=== PATIENT | female | born 1930 | race Caucasian/White ===

== ENCOUNTER 2018-05-19 21:20 | Observation (INO) | payer OTHER, BC ==
--- NOTE | 2018-05-19 21:26 | PDOC ---
Rapid Medical Evaluation Time Seen by Provider: 05/19/18 21:21 Medical Evaluation: Allergies Allergy/AdvReac Type Severity Reaction Status Date / Time cephalexin monohydrate Allergy Verified 09/08/16 16:24 [From Keflex] morphine Allergy Verified 09/08/16 16:24 Sulfa (Sulfonamide Allergy Verified 09/08/16 16:24 Antibiotics) 05/19/18 21:21 I have performed a brief in-person evaluation of this patient. The patient presents with a chief complaint of: "sick for a few hours" starting around 5 pm, nausea, 1 episode of vomiting here in ED, dizziness. c/o "feeling very weak" Pertinent physical exam findings: uncomfortable appearing, slouched in wheelchair, lungs ctab, VSS. PCP Neo I have ordered the following: labs, urine, ekg, cxr The patient will proceed to the ED for further evaluation. Discharge Disposition - Diagnosis Weakness - Referrals - Patient Instructions - Post Discharge Activity
--- NOTE | 2018-05-19 21:33 | PDOC ---
History of Present Illness - General Chief Complaint: Nausea/Vomiting Stated Complaint: NAUSEA/VOMITING Time Seen by Provider: 05/19/18 21:21 - History of Present Illness Initial Comments: 87 year old female with PMH of ovarian cysts, duodenal ulcers, and GERD presenting with nausea, vomiting, lower abdominal pain, and general weakness since 17:00. Patient states that she has been very upset since her daughter was hospitalized and wanted to go see her today. She decided not to eat anything because she was in a greco. She hadn't eaten anything until her family forced her to drink some water at 17:00. While she was in the car on the way to the ED she states she got a little bit car sick and began to feel nauseous in our ED. Denies headache, chest pain, visual changes, SOB, diarrhea, cough, recent illness, or other symptoms. 05/19/18 21:34 Past History - Past Medical History Allergies/Adverse Reactions: Allergies Allergy/AdvReac Type Severity Reaction Status Date / Time cephalexin monohydrate Allergy Verified 05/19/18 21:24 [From Keflex] morphine Allergy Verified 05/19/18 21:24 Sulfa (Sulfonamide Allergy Verified 05/19/18 21:24 Antibiotics) Home Medications: Ambulatory Orders Ranitidine HCl [Zantac] 150 mg PO DAILY 09/08/16 COPD: No Thyroid Disease: Yes - Suicide/Smoking/Psychosocial Hx Smoking History: Never smoked Have you smoked in the past 12 months: No Information on smoking cessation initiated: No Hx Alcohol Use: No Drug/Substance Use Hx: No Substance Use Type: None Review of Systems - Review of Systems Constitutional: No: Chills, Diaphoresis HEENTM: No: Blurred Vision, Double Vision Respiratory: No: Cough, Orthopnea, Shortness of Breath Cardiac (ROS): No: Chest Pain ABD/GI: Yes: Nausea, Vomiting. No: Constipated, Diarrhea : No: Burning, Dysuria, Discharge Musculoskeletal: No: Back Pain, Gout, Joint Pain Integumentary: No: Erythema, Flushing, Lesions Neurological: No: Headache, Numbness Psychiatric: No: Anxiety, Depression Hematologic/Lymphatic: No: Anemia, Blood Clots, Easy Bleeding *Physical Exam - Vital Signs Last Vital Signs Temp Pulse Resp BP Pulse Ox 97.4 F L 89 17 185/98 97 05/19/18 21:21 05/19/18 21:21 05/19/18 21:21 05/19/18 21:21 05/19/18 21:21 - Physical Exam General Appearance: Yes: Nourished, Appropriately Dressed. No: Apparent Distress HEENT: positive: EOMI, TRISTIN, Normal ENT Inspection, Normal Voice. negative: TMs Normal Neck: positive: Trachea midline, Normal Thyroid, Supple. negative: Tender, Rigid Respiratory/Chest: positive: Lungs Clear, Normal Breath Sounds. negative: Chest Tender, Respiratory Distress, Accessory Muscle Use Cardiovascular: positive: Regular Rhythm, Regular Rate Gastrointestinal/Abdominal: positive: Normal Bowel Sounds, Tender (suprapubic tenderness with full bladder), Flat, Soft Musculoskeletal: positive: Normal Inspection Extremity: positive: Normal Capillary Refill, Normal Inspection, Normal Range of Motion Integumentary: positive: Normal Color, Dry, Warm Neurologic: positive: alarm technician II-XII NML intact, Fully Oriented, Alert, Normal Mood/ Affect, Normal Response, Motor Strength / ED Treatment Course - LABORATORY CBC & Chemistry Diagram: 05/19/18 21:39 05/19/18 21:35 Medical Decision Making - Medical Decision Making 87year old with nausea, vomiting, and weakness concerning for anginal equivalent given age. EKG demonstrating NSR, 77 BPM, UT interval 166, QRS 70, QTc [address] or T wave changes. However, yoni has a troponin of 0.10. Her previous tropnins have been in the 0.6-0.8 range. Will admit patient for cardiac workup and repeat troponins given age. Signed out to Dr. Ortiz ( covering doc for Aurelio) in stable condition. 05/20/18 02:21 *DC/Admit/Observation/Transfer Diagnosis at time of Disposition: Weakness - Discharge Dispostion Condition at time of disposition: Stable Decision to Admit order: Yes - Referrals - Patient Instructions - Post Discharge Activity
--- NOTE | 2018-05-19 21:59 | PDOC ---
Attending Attestation - Resident Resident Name: Adan Nettles - ED Attending Attestation I have performed the following: I have examined & evaluated the patient, The case was reviewed & discussed with the resident, I agree w/resident's findings & plan, Exceptions are as noted - Medical Decision Making 05/19/18 21:59 I, Dr. Georgie Samayoa, DO, attest that this document has been prepared under my direction and personally reviewed by me in its entirety. I further attest, that it accurately reflects all work, treatment, procedures and medical decision -making performed by me. 05/19/18 23:03 a/p: 87yo female with nausea today after visiting her daughter in the hospital -dysuria - will send ua -elevated trop on labs -will keep in obs pending repeat trops and cards eval -no cp -ambulates in the ED -will keep on tele -will monitor and reassess -cxr pending <Georgie Samayoa - Last Filed: 05/19/18 23:03> - HPI HPI: 05/19/18 23:05 The patient is an 87 year old female with history of GERD who presents to the ED complaining of nausea that began this afternoon. The patient states she was in her car after visiting her daughter in the hospital at the onset of her symptoms. She denies chest pain or shortness of breath. She denies fever or chills. She denies vomiting or diarrhea. PCP: Dr. Luevano - Physicial Exam PE: 05/19/18 23:12 Constitutional: Awake, alert, oriented. No acute distress. Head: Normocephalic. Atraumatic Eyes: PERRL. EOMI. Conjunctivae are not pale. ENT: Mucous membranes are moist and intact. Posterior pharynx without exudates or erythema. Uvula midline. Neck: Supple. Full ROM. No lymphadenopathy. Cardiovascular: Regular rate. Regular rhythm. S1, S2 regular. Distal pulses are 2+ and symmetric. Pulmonary/Chest: No evidence of respiratory distress. Clear to auscultation bilaterally No wheezing, rales or rhonchi. Abdominal: Soft and non-distended. There is no tenderness. No rebound, guarding or rigidity. No organomegaly. No palpable masses. Good bowel sounds. Back: No CVA tenderness. Musculoskeletal: No edema. No cyanosis. No clubbing. Full range of motion in all extremities. Nocalf tenderness. Radial/pedal pulses are intact and 2+ bilaterally Skin: Skin is warm and dry. No petechiae. No purpura. Neurological: Alert and oriented to person, place, and time. Cranial nerves II -XII are grossly intact. Normal speech. Strength is grossly symmetric. No sensory deficits. Psychiatric: Good eye contact. Normal interaction, affect and behavior. - Medical Decision Making 05/19/18 23:12 Documentation prepared by Margaret Crowell, acting as registered medical assistant for Georgie Samayoa DO. <Margaret Crowell - Last Filed: 05/19/18 23:12> Heart Score/ECG Review - ECG Intrepretation Comment:: 05/19/18 22:50 sinus at 77, nl axis, nl interval, no acute st/t wave findings <Georgie Samayoa - Last Filed: 05/19/18 23:03>
[2018-05-19 22:03] LABS: BASO % 0.4 % (0-2.0); EOS % 0.6 % (0-4.5); HEMATOCRIT 42.9 % (32.4-45.2); HEMOGLOBIN 14.6 GM/dL (10.7-15.3); MCH 31.3 pg (25.7-33.7); MCHC 34.1 g/dl (32.0-36.0); MEAN CELL VOLUME 91.9 fl (80-96); MEAN PLT VOLUME 7.2 fl (7.5-11.1); MONO % 3.6 % (3.8-10.2); NEUT % 75.4 % (42.8-82.8); PLATELET COUNT 192 K/MM3 (134-434); RBC 4.67 M/mm3 (3.60-5.2); RDW 13.4 % (11.6-15.6); WHITE BLOOD COUNT 8.8 K/mm3 (4.0-10.0)
[2018-05-19 22:25] LABS: ALBUMIN 3.6 g/dl (3.4-5.0); ALK PHOS 78 U/L (45-117); ANION GAP 8 (8-16); BILIRUBIN,TOTAL 1.1 mg/dL (0.2-1.0); BLOOD UREA NITROGEN 15 mg/dL (7-18); CHLORIDE 105 mmol/L (98-107); CO2 28 mmol/L (21-32); CREATININE 0.6 mg/dL (0.55-1.02); GLUCOSE,RANDOM 148 mg/dL (74-106); LIPASE 87 U/L (73-393); POTASSIUM 3.9 mmol/L (3.5-5.1); SGOT/AST 19 U/L (15-37); SGPT/ALT 18 U/L (12-78); SODIUM 141 mmol/L (136-145); TOT PROT 7.2 g/dl (6.4-8.2)
[2018-05-19 22:29] LABS: INR 1.04 (0.82-1.09); PROTHROMBIN TIME (PATIENT) 11.7 SEC (9.7-13.0)
[2018-05-19 22:32] LABS: ACTIVATED PTT 30.3 SECONDS (25.2-36.5)
[2018-05-19] MEDS ORDERED: ASPIRIN 81 MG CHEWABLE TABLETS PO ONE (22:46)
[2018-05-19] MEDS ORDERED: ONDANSETRON 4 MG/2 ML VIAL IVPUSH ONE (22:46)
[2018-05-19] MEDS ORDERED: ONDANSETRON 4 MG/2 ML VIAL ONE (22:50)
[2018-05-19] MEDS ORDERED: ASPIRIN 325 MG TABLET ONE (22:50)
[2018-05-19 23:26] LABS: URINE APPEARANCE CLOUDY; URINE BILIRUBIN NEGATIVE (<2.0 mg/dL); URINE COLOR YELLOW; URINE GLUCOSE (UA) NEGATIVE (NEGATIVE); URINE KETONE 1+ (NEGATIVE); URINE NITRITE POSITIVE (NEGATIVE); URINE PROTEIN NEGATIVE (NEGATIVE); URINE UROBILINOGEN NEGATIVE mg/dL (0.2-1.0)
[2018-05-19 23:28] LABS: URINE LEUK ESTERASE 3+ (NEGATIVE)
[2018-05-19 23:29] LABS: EPI CELLS RARE /HPF (FEW); URINE BACTERIA RARE /hpf (NONE SEEN)
[2018-05-19] MEDS ORDERED: CEFTRIAXONE 1 GM/50 ML BAG ONE (23:57)
[2018-05-19] MEDS ORDERED: AMOX TR/POT CLAV 875MG/125MG TABLETS (FP) PO ONE (23:59)
[2018-05-20] MEDS ORDERED: CEFTRIAXONE 1 GM in DEXTROSE 5%-WATER - 100 ML IVPB ONE (00:02)
[2018-05-20 08:41] LABS: BASO % 0.3 % (0-2.0); EOS % 2.1 % (0-4.5); HEMATOCRIT 40.6 % (32.4-45.2); HEMOGLOBIN 13.9 GM/dL (10.7-15.3); LYMPH % 27.4 % (8-40); MCH 31.7 pg (25.7-33.7); MCHC 34.4 g/dl (32.0-36.0); MEAN CELL VOLUME 92.3 fl (80-96); MEAN PLT VOLUME 7.1 fl (7.5-11.1); MONO % 6.4 % (3.8-10.2); NEUT % 63.8 % (42.8-82.8); PLATELET COUNT 185 K/MM3 (134-434); RBC 4.39 M/mm3 (3.60-5.2); RDW 13.4 % (11.6-15.6); WHITE BLOOD COUNT 8.4 K/mm3 (4.0-10.0)
--- NOTE | 2018-05-20 08:52 | HP ---
Admitting History and Physical - Primary Care Physician PCP: Ivett Larson - Admission Chief Complaint: nausea, vomiting History of Present Illness: pt has been very upset, eating little for the past week, her daughter is in the hospital yesterday she went to visit her and got nauseated during the car ride-did not eat anything whole day daughter got concerned and brought her to the er, she threw up once since then she has been well, no chest pain, no abd.pain, no fever, no chills, no cough no further nausea, she is hungry urine has been off color in er troponin slightly elevated at 0.1 History Source: Patient Limitations to Obtaining History: No Limitations - Past Medical History Cardiovascular: Yes: HTN (not on treatment) Additional Past Medical History: macular degeneration - Past Surgical History Additional Past Surgical History: partial thyroidectomy tonsillectomy R ovarian cyst - Smoking History Smoking history: Never smoked Have you smoked in the past 12 months: No - Alcohol/Substance Use Hx Alcohol Use: No - Social History Usual Living Arrangement: Yes: Alone ADL: Independent History of Recent Travel: No Home Medications - Allergies Allergies/Adverse Reactions: Allergies Allergy/AdvReac Type Severity Reaction Status Date / Time cephalexin monohydrate Allergy Verified 05/19/18 21:24 [From Keflex] morphine Allergy Verified 05/19/18 21:24 Sulfa (Sulfonamide Allergy Verified 05/19/18 21:24 Antibiotics) - Home Medications Home Medications: Ambulatory Orders Ranitidine HCl [Zantac] 150 mg PO DAILY 09/08/16 Family Disease History - Family Disease History Family History: Unremarkable Review of Systems Findings/Remarks: offers no complaints - Review of Systems Constitutional: reports: No Symptoms HENT: reports: No Symptoms Neck: reports: No Symptoms Cardiovascular: reports: No Symptoms Respiratory: reports: No Symptoms Gastrointestinal: reports: No Symptoms Genitourinary: reports: No Symptoms Musculoskeletal: reports: No Symptoms Integumentary: reports: No Symptoms Neurological: reports: No Symptoms Endocrine: reports: No Symptoms Psychiatric: reports: No Symptoms Physical Examination Vital Signs: Vital Signs Temperature 98.0 F 05/20/18 05:48 Pulse Rate 70 05/20/18 05:48 Respiratory Rate 16 05/20/18 05:48 Blood Pressure 126/63 05/20/18 05:48 O2 Sat by Pulse Oximetry (%) 97 05/20/18 05:48 Constitutional: Yes: Well Nourished, Anxious Eyes: Yes: Conjunctiva Clear HENT: Yes: Atraumatic, Normocephalic Neck: Yes: Supple, Trachea Midline Cardiovascular: Yes: Regular Rate and Rhythm Respiratory: Yes: CTA Bilaterally Gastrointestinal: Yes: Normal Bowel Sounds, Soft Edema: No Peripheral Pulses WNL: Yes Integumentary: Yes: Other (irritant dermatitis below both breasts and left inguinal area) Neurological: Yes: WNL ...Motor Strength: WNL Psychiatric: Yes: WNL Labs: Laboratory Results - last 24 hr 05/19/18 05/19/18 05/19/18 21:35 21:39 21:39 WBC 8.8 RBC 4.67 Hgb 14.6 Hct 42.9 MCV 91.9 MCH 31.3 MCHC 34.1 RDW 13.4 Plt Count 192 MPV 7.2 L Absolute Neuts (auto) 6.6 Neutrophils % 75.4 Lymphocytes % 20.0 D Monocytes % 3.6 L Eosinophils % 0.6 Basophils % 0.4 Nucleated RBC % 0 PT with INR 11.70 INR 1.04 PTT (Actin FS) 30.3 Sodium 141 Potassium 3.9 Chloride 105 Carbon Dioxide 28 Anion Gap 8 BUN 15 Creatinine 0.6 Creat Clearance w eGFR > 60 Random Glucose 148 H Calcium 9.0 Total Bilirubin 1.1 H AST 19 ALT 18 Alkaline Phosphatase 78 Troponin I 0.10 H Total Protein 7.2 Albumin 3.6 Lipase 87 Urine Color Urine Appearance Urine pH Ur Specific [place] Urine Protein Urine Glucose (UA) Urine Ketones Urine Blood Urine Nitrite Urine Bilirubin Urine Urobilinogen Ur Leukocyte Esterase Urine WBC (Auto) Urine RBC (Auto) Ur Epithelial Cells Urine Bacteria 05/19/18 05/20/18 23:10 07:45 WBC 8.4 RBC 4.39 Hgb 13.9 Hct 40.6 MCV 92.3 MCH 31.7 MCHC 34.4 RDW 13.4 Plt Count 185 MPV 7.1 L Absolute Neuts (auto) 5.4 Neutrophils % 63.8 Lymphocytes % 27.4 D Monocytes % 6.4 Eosinophils % 2.1 D Basophils % 0.3 Nucleated RBC % 0 PT with INR INR PTT (Actin FS) Sodium Potassium Chloride Carbon Dioxide Anion Gap BUN Creatinine Creat Clearance w eGFR Random Glucose Calcium Total Bilirubin AST ALT Alkaline Phosphatase Troponin I Total Protein Albumin Lipase Urine Color Yellow Urine Appearance Cloudy Urine pH 6.0 Ur Specific [place] 1.013 Urine Protein Negative Urine Glucose (UA) Negative Urine Ketones 1+ H Urine Blood Negative Urine Nitrite Positive Urine Bilirubin Negative Urine Urobilinogen Negative Ur Leukocyte Esterase 3+ H Urine WBC (Auto) 580 Urine RBC (Auto) 28 Ur Epithelial Cells Rare Urine Bacteria Rare Imaging - Results Cat Scan: Report Reviewed EKG: Image Reviewed Problem List - Problems (1) Troponin I above reference range Code(s): R74.8 - ABNORMAL LEVELS OF OTHER SERUM ENZYMES (2) Nausea Code(s): R11.0 - NAUSEA (3) UTI (urinary tract infection) Code(s): N39.0 - URINARY TRACT INFECTION, SITE NOT SPECIFIED Qualifiers: Urinary tract infection type: acute cystitis Hematuria presence: without hematuria Qualified Code(s): N30.00 - Acute cystitis without hematuria (4) HTN (hypertension) Code(s): I10 - ESSENTIAL (PRIMARY) HYPERTENSION Qualifiers: Hypertension type: essential hypertension Qualified Code(s): I10 - Essential (primary) hypertension Assessment/Plan po abx repeat cardiac enzymes, echo would get cardiology evaluation if above tests are normal can dc home today
[2018-05-20 09:02] LABS: CHLORIDE 105 mmol/L (98-107); POTASSIUM 4.3 mmol/L (3.5-5.1); SODIUM 141 mmol/L (136-145)
[2018-05-20 09:11] LABS: ALBUMIN 3.2 g/dl (3.4-5.0); ALK PHOS 68 U/L (45-117); ANION GAP 5 (8-16); BILIRUBIN,TOTAL 0.9 mg/dL (0.2-1.0); BLOOD UREA NITROGEN 18 mg/dL (7-18); CALCIUM 8.9 mg/dL (8.5-10.1); CO2 31 mmol/L (21-32); CREATININE 0.9 mg/dL (0.55-1.02); GLUCOSE,RANDOM 88 mg/dL (74-106); SGOT/AST 18 U/L (15-37); SGPT/ALT 18 U/L (12-78); TOT PROT 6.7 g/dl (6.4-8.2)
[2018-05-20] MEDS: RANITIDINE HCL 150 MG TABLET (FP) PO SCH (10:40)
[2018-05-20] MEDS ORDERED: HYDROCHLOROTHIAZIDE 12.5 MG CAPSULE (FP) PO SCH (10:45)
[2018-05-20 12:09] VITALS: BMI 24.3
--- NOTE | 2018-05-20 12:10 | EKG ---
Test Reason : Blood Pressure : / mmHG Vent. Rate : 077 BPM Atrial Rate : 077 BPM P-R Int : 166 ms QRS Dur : 070 ms QT Int : 394 ms P-R-T Axes : 049 032 037 degrees QTc Int : 445 ms NORMAL SINUS RHYTHM NORMAL ECG WHEN COMPARED WITH ECG OF 08-SEP-2016 16:16, NO SIGNIFICANT CHANGE WAS FOUND Confirmed by LEO LIRIANO MD ([id number]) on 05/20/2018 12:10:20 PM Referred By: Confirmed By:LEO LIRIANO MD
--- NOTE | 2018-05-20 13:16 | ECHO ---
Name: IRAJ GRANT Exam:Adult Echocardiogram Study Date: 05/20/2018 11:58 AM Age: 87 yrs Reason For Study: LV Function Height: 62 in Weight: 130 lb BSA: 1.6 m2 MMode/2D Measurements & Calculations IVSd: 1.2 cm Ao root diam: 3.2 cm LVIDd: 3.7 cm LA dimension: 3.2 cm LVIDs: 2.5 cm LVPWd: 0.86 cm EDV(Teich): 57.6 ml ESV(Teich): 21.4 ml Doppler Measurements & Calculations MV E max kelvin: 107.0 cm/sec TR max kelvin: 249.8 cm/sec MV A max kelvin: 136.8 cm/sec TR max P.0 mmHg MV E/A: 0.78 MV dec time: 0.35 sec Med Peak E' Kelvin: 7.8 cm/sec PI Vmax: 171.0 cm/sec Med E/e': 13.7 Lat Peak E' Kelvin: 11.1 cm/sec Lat E/e': 9.6 Left Ventricle Left ventricular systolic function is normal. The transmitral spectral Doppler flow pattern is sugges tive of impaired LV relaxation. Right Ventricle The right ventricle is grossly normal size. The right ventricular systolic function is grossly normal . Atria Normal left and right atrial size and function. Mitral Valve There is mild mitral annular calcification. There is no mitral valve stenosis. There is mild mitral regurgitation. Tricuspid Valve The tricuspid valve is not well visualized, but is grossly normal. There is mild tricuspid regurgitat ion. Aortic Valve There is mild aortic sclerosis.;. No hemodynamically significant valvular aortic stenosis. No aortic regurgitation is present. Pulmonic Valve The pulmonic valve is not well seen, but is grossly normal. There is no pulmonic valvular stenosis. M ild pulmonic valvular regurgitation. Great Vessels The aortic root is normal size. Pericardium/Pleura There is no pericardial effusion. Interpretation Summary Left ventricular systolic function is normal. There is mild mitral annular calcification. There is mild mitral regurgitation. There is mild tricuspid regurgitation. There is mild aortic sclerosis.; The transmitral spectral Doppler flow pattern is suggestive of impaired LV relaxation. MD Phi Damian 05/20/2018 01:15 PM
--- NOTE | 2018-05-20 13:27 | CON.CARD ---
Consult Consult Specialty:: Cardiology Referred by:: Ivett Gilliland Reason for Consultation:: Demand ischemia - History of Present Illness Chief Complaint: Nausea, emesis History of Present Illness: nausea, vomiting History of Present Illness: 87 yo female pt has been very upset, eating little for the past week, her daughter is in the hospital. Yesterday she went to visit her and got nauseated during the car ride-did not eat anything whole day daughter got concerned and brought her to the er, she threw up once since then she has been well, denies chest pain, no abd.pain, no fever, no chills, no cough, no further nausea and tolerating oral intake. Demand ischemia noted in context of elevated BP. Last saw Dr. Dalton 10/07/2016. - History Source History Provided By: Patient Limitations to Obtaining History: No Limitations - Past Medical History Cardio/Vascular: Yes: HTN (not on treatment) - Alcohol/Substance Use Hx Alcohol Use: No - Smoking History Smoking history: Never smoked Have you smoked in the past 12 months: No - Social History ADL: Independent History of Recent Travel: No Home Medications - Allergies Allergies/Adverse Reactions: Allergies Allergy/AdvReac Type Severity Reaction Status Date / Time cephalexin monohydrate Allergy Verified 05/19/18 21:24 [From Keflex] morphine Allergy Verified 05/19/18 21:24 Sulfa (Sulfonamide Allergy Verified 05/19/18 21:24 Antibiotics) - Home Medications Home Medications: Ambulatory Orders Ranitidine HCl [Zantac] 150 mg PO DAILY 09/08/16 Review of Systems - Review of Systems Gastrointestinal: reports: Nausea, Vomiting Vital Signs: Vital Signs Temperature 98.0 F 05/20/18 10:25 Pulse Rate 81 05/20/18 10:25 Respiratory Rate 16 05/20/18 10:25 Blood Pressure 158/68 05/20/18 10:25 O2 Sat by Pulse Oximetry (%) 95 05/20/18 10:25 Constitutional: Yes: No Distress, Calm Neck: Yes: Supple Respiratory: Yes: Regular, CTA Bilaterally Gastrointestinal: Yes: Normal Bowel Sounds, Soft Cardiovascular: Yes: Regular Rate and Rhythm JVD: No Carotid Bruit: No Heart Sounds: Yes: S1, S2 Murmur: Yes: Systolic Murmur, Grade 1 Edema: No - Other Data Labs, Other Data: CBC, BMP 05/20/18 07:45 05/20/18 07:45 INR, PTT INR 1.04 (0.82-1.09) 05/19/18 21:39 Troponin, BNP 05/19/18 05/20/18 21:35 07:45 Troponin I 0.10 H 0.13 H Troponin, BNP 05/19/18 05/20/18 21:35 07:45 Troponin I 0.10 H 0.13 H NSR @ 77 Imaging - Results Chest X-ray: Report Reviewed (NAD) Problem List - Problems (1) Demand ischemia Code(s): I24.8 - OTHER FORMS OF ACUTE ISCHEMIC HEART DISEASE (2) Hypertensive urgency Code(s): I16.0 - HYPERTENSIVE URGENCY (3) HTN (hypertension) Code(s): I10 - ESSENTIAL (PRIMARY) HYPERTENSION Qualifiers: Hypertension type: essential hypertension Qualified Code(s): I10 - Essential (primary) hypertension (4) Nausea Code(s): R11.0 - NAUSEA (5) Troponin I above reference range Code(s): R74.8 - ABNORMAL LEVELS OF OTHER SERUM ENZYMES Assessment/Plan 05/20/2018 Echo: Normal LV size and fxn, mild MR, TR 1. Demand ischemia in context of 2. Hypertensive urgency 3. Nausea/emesis since resolved 4. UTI P:1. Trend trops to document peak, check TSH, lipid panel, Ha1c 2. Continue ASA, change HCTZ to Toprol XL 12.5 qd with uptitration as tolerated , complete empiric abx course 3. Patient may be d/morris once trops downtrend with f/u with Dr. Dalton in office 4. Thank you for consultative opportunity \
[2018-05-20] MEDS: metoPROLOL SUCCINATE 25 MG TAB.SR.24H (FP) PO SCH (14:25)
[2018-05-20] MEDS: ASPIRIN 81 MG CHEWABLE TABLETS PO SCH (14:25)
[2018-05-20] MEDS: NYSTATIN POWDER 100,000 UNITS/GM - 15 GM TOPICAL POWDER TP SCH (14:25)
[2018-05-20 18:16] LABS: CHOLESTEROL 157 mg/dL (50-200); HDL CHOLESTEROL 66 mg/dL (40-60); TRIGLYCERIDES 76 mg/dL (35-160)
[2018-05-21 06:04] VITALS: PULSE 62
--- NOTE | 2018-05-21 09:03 | PN ---
Progress Note (short form) - Note Progress Note: she is pain free no fever or chils no chest pain or cough vs Vital Signs Period Temp Pulse Resp BP Sys/Manrique Pulse Ox Last 24 Hr 98 F-98.9 F 62-83 16-18 120-158/56-85 95-96 labs Laboratory 05/19/18 05/19/18 05/19/18 21:35 21:39 21:39 WBC 8.8 K/mm3 K/mm3 (4.0-10.0) RBC 4.67 M/mm3 M/mm3 (3.60-5.2) Hgb 14.6 GM/dL GM/dL (10.7-15.3) Hct 42.9 % % (32.4-45.2) MCV 91.9 fl fl (80-96) MCH 31.3 pg pg (25.7-33.7) MCHC 34.1 g/dl g/dl (32.0-36.0) RDW 13.4 % % (11.6-15.6) Plt Count 192 K/MM3 K/MM3 (134-434) MPV 7.2 fl L fl (7.5-11.1) Absolute Neuts (auto) 6.6 # # Neutrophils % 75.4 % % (42.8-82.8) Lymphocytes % 20.0 % D % (8-40) Monocytes % 3.6 % L % (3.8-10.2) Eosinophils % 0.6 % % (0-4.5) Basophils % 0.4 % % (0-2.0) Nucleated RBC % 0 % % (0-0) PT with INR 11.70 SEC SEC (9.7-13.0) INR 1.04 (0.82-1.09) PTT (Actin FS) 30.3 SECONDS SECONDS (25.2-36.5) Sodium 141 mmol/L mmol/L (136-145) Potassium 3.9 mmol/L mmol/L (3.5-5.1) Chloride 105 mmol/L mmol/L (98-107) Carbon Dioxide 28 mmol/L mmol/L (21-32) Anion Gap 8 (8-16) BUN 15 mg/dL mg/dL (7-18) Creatinine 0.6 mg/dL mg/dL (0.55-1.02) Creat Clearance w eGFR > 60 (>60) Random Glucose 148 mg/dL H mg/dL (74-106) Hemoglobin A1c % Calcium 9.0 mg/dL mg/dL (8.5-10.1) Total Bilirubin 1.1 mg/dL H mg/dL (0.2-1.0) AST 19 U/L U/L (15-37) ALT 18 U/L U/L (12-78) Alkaline Phosphatase 78 U/L U/L (45-117) Creatine Kinase Troponin I 0.10 ng/ml H ng/ml (0.00-0.05) Total Protein 7.2 g/dl g/dl (6.4-8.2) Albumin 3.6 g/dl g/dl (3.4-5.0) Triglycerides Cholesterol Total LDL Cholesterol HDL Cholesterol Lipase 87 U/L U/L (73-393) TSH Urine Color Urine Appearance Urine pH Ur Specific [place] Urine Protein Urine Glucose (UA) Urine Ketones Urine Blood Urine Nitrite Urine Bilirubin Urine Urobilinogen Ur Leukocyte Esterase Urine WBC (Auto) Urine RBC (Auto) Ur Epithelial Cells Urine Bacteria 05/19/18 05/20/18 05/20/18 23:10 07:45 07:45 WBC 8.4 K/mm3 K/mm3 (4.0-10.0) RBC 4.39 M/mm3 M/mm3 (3.60-5.2) Hgb 13.9 GM/dL GM/dL (10.7-15.3) Hct 40.6 % % (32.4-45.2) MCV 92.3 fl fl (80-96) MCH 31.7 pg pg (25.7-33.7) MCHC 34.4 g/dl g/dl (32.0-36.0) RDW 13.4 % % (11.6-15.6) Plt Count 185 K/MM3 K/MM3 (134-434) MPV 7.1 fl L fl (7.5-11.1) Absolute Neuts (auto) 5.4 # # Neutrophils % 63.8 % % (42.8-82.8) Lymphocytes % 27.4 % D % (8-40) Monocytes % 6.4 % % (3.8-10.2) Eosinophils % 2.1 % D % (0-4.5) Basophils % 0.3 % % (0-2.0) Nucleated RBC % 0 % % (0-0) PT with INR INR PTT (Actin FS) Sodium 141 mmol/L mmol/L (136-145) Potassium 4.3 mmol/L mmol/L (3.5-5.1) Chloride 105 mmol/L mmol/L (98-107) Carbon Dioxide 31 mmol/L mmol/L (21-32) Anion Gap 5 L (8-16) BUN 18 mg/dL mg/dL (7-18) Creatinine 0.9 mg/dL mg/dL (0.55-1.02) Creat Clearance w eGFR 58.95 (>60) Random Glucose 88 mg/dL mg/dL (74-106) Hemoglobin A1c % Calcium 8.9 mg/dL mg/dL (8.5-10.1) Total Bilirubin 0.9 mg/dL mg/dL (0.2-1.0) AST 18 U/L U/L (15-37) ALT 18 U/L U/L (12-78) Alkaline Phosphatase 68 U/L D U/L (45-117) Creatine Kinase 40 IU/L IU/L (26-192) Troponin I 0.13 ng/ml H ng/ml (0.00-0.05) Total Protein 6.7 g/dl g/dl (6.4-8.2) Albumin 3.2 g/dl L g/dl (3.4-5.0) Triglycerides Cholesterol Total LDL Cholesterol HDL Cholesterol Lipase TSH Urine Color Yellow Urine Appearance Cloudy Urine pH 6.0 (5.0-8.0) Ur Specific [place] 1.013 (1.001-1.035) Urine Protein Negative (NEGATIVE) Urine Glucose (UA) Negative (NEGATIVE) Urine Ketones 1+ H (NEGATIVE) Urine Blood Negative (NEGATIVE) Urine Nitrite Positive (NEGATIVE) Urine Bilirubin Negative (<2.0 mg/dL) Urine Urobilinogen Negative mg/dL mg/dL (0.2-1.0) Ur Leukocyte Esterase 3+ H (NEGATIVE) Urine WBC (Auto) 580 /hpf /hpf (3-5) Urine RBC (Auto) 28 /hpf /hpf (0-3) Ur Epithelial Cells Rare /HPF /HPF (FEW) Urine Bacteria Rare /hpf /hpf (NONE SEEN) 05/20/18 05/20/1805/20/18 17:25 17:25 17:25 WBC RBC Hgb Hct MCV MCH MCHC RDW Plt Count MPV Absolute Neuts (auto) Neutrophils % Lymphocytes % Monocytes % Eosinophils % Basophils % Nucleated RBC % PT with INR INR PTT (Actin FS) John Creatinine Creat Clearance w eGFR Random Glucose Hemoglobin A1c % 5.9 % % (4.8-6.0) Calcium Total Bilirubin AST ALT Alkaline Phosphatase Creatine Kinase Troponin I 0.10 ng/ml H ng/ml (0.00-0.05) Total Protein Albumin Triglycerides 76 mg/dL mg/dL (35-160) Cholesterol 157 mg/dL mg/dL (50-200) Total LDL Cholesterol 84 mg/dL mg/dL (5-100) HDL Cholesterol 66 mg/dL H mg/dL (40-60) Lipase TSH 1.13 uIU/ml uIU/ml (0.358-3.74) Urine Color Urine Appearance Urine pH Ur Specific [place] Urine Protein Urine Glucose (UA) Urine Ketones Urine Blood Urine Nitrite Urine Bilirubin Urine Urobilinogen Ur Leukocyte Esterase Urine WBC (Auto) Urine RBC (Auto) Ur Epithelial Cells Urine Bacteria heent nad neck supple lungs clear heart no change ext no edema ap acute non st elevation mi with elevated troponin she is better Troponin is coming down will discharge home today
[2018-05-21] MEDS: metoPROLOL SUCCINATE 25 MG TAB.SR.24H (FP) PO SCH (09:24)
[2018-05-21] MEDS: RANITIDINE HCL 150 MG TABLET (FP) PO SCH (09:25)
[2018-05-21] MEDS: ASPIRIN 81 MG CHEWABLE TABLETS PO SCH (09:25)
[2018-05-21] MEDS ORDERED: PT OWN MED DRAWER 7, Y5N ONE (09:27)
[2018-05-21] MEDS: NYSTATIN POWDER 100,000 UNITS/GM - 15 GM TOPICAL POWDER TP SCH (09:28)
[2018-05-21 10:32] VITALS: BP 147/71; TEMP 98.1
--- NOTE | 2018-05-21 10:53 | PN ---
Progress Note, Physician History of Present Illness: Nausea and emesis resolved, BP control improved. Denies chest pain or dyspnea. - Current Medication List Current Medications: Active Medications Aspirin (Asa -) 81 mg PO DAILY [facility] Last Admin: 05/21/18 09:25 Dose: 81 mg Levofloxacin (Levaquin -) 500 mg PO DAILY@0600 [facility] Last Admin: 05/21/18 05:58 Dose: 500 mg Metoprolol Succinate (Toprol Xl -) 12.5 mg PO DAILY [facility] Last Admin: 05/21/18 09:24 Dose: 12.5 mg Nystatin (Nystop Powder -) 1 applic TP DAILY [facility] Last Admin: 05/21/18 09:28 Dose: 1 applic Ranitidine HCl (Zantac -) 150 mg PO DAILY [facility] Last Admin: 05/21/18 09:25 Dose: 150 mg - Objective Vital Signs: Vital Signs Temperature 98.1 F 05/21/18 09:00 Pulse Rate 62 05/21/18 09:00 Respiratory Rate 18 05/21/18 09:00 Blood Pressure 147/71 05/21/18 09:00 O2 Sat by Pulse Oximetry (%) 96 05/20/18 20:37 Constitutional: Yes: No Distress, Calm, Thin Neck: Yes: Supple Cardiovascular: Yes: Regular Rate and Rhythm Respiratory: Yes: Regular, CTA Bilaterally Gastrointestinal: Yes: Normal Bowel Sounds, Soft Edema: No Labs: CBC, BMP 05/20/18 07:45 05/20/18 07:45 INR, PTT INR 1.04 (0.82-1.09) 05/19/18 21:39 Problem List - Problems (1) Demand ischemia Code(s): I24.8 - OTHER FORMS OF ACUTE ISCHEMIC HEART DISEASE (2) Hypertensive urgency Code(s): I16.0 - HYPERTENSIVE URGENCY (3) HTN (hypertension) Code(s): I10 - ESSENTIAL (PRIMARY) HYPERTENSION Qualifiers: Hypertension type: essential hypertension Qualified Code(s): I10 - Essential (primary) hypertension (4) Nausea Code(s): R11.0 - NAUSEA (5) Troponin I above reference range Code(s): R74.8 - ABNORMAL LEVELS OF OTHER SERUM ENZYMES Assessment/Plan 05/20/2018 Echo: Normal LV size and fxn, mild MR, TR 1. Demand ischemia in context of 2. Hypertensive urgency resolved 3. Nausea/emesis since resolved 4. UTI P:1. Trops downtrending 2. Continue ASA, increase Toprol XL 25 qd with uptitration as tolerated, complete empiric abx course 3. Patient may be d/omrris with f/u with Dr. Dalton in office
[2018-05-21] MEDS ORDERED: metoPROLOL SUCCINATE 25 MG TAB.SR.24H (FP) PO SCH (10:59)
--- NOTE | 2018-05-24 07:59 | DS ---
Physical Examination Vital Signs: Vital Signs Temperature 98.1 F 05/21/18 09:00 Pulse Rate 62 05/21/18 09:00 Respiratory Rate 18 05/21/18 09:00 Blood Pressure 147/71 05/21/18 09:00 O2 Sat by Pulse Oximetry (%) 96 05/20/18 20:37 Labs: CBC, BMP 05/20/18 07:45 05/20/18 07:45 Discharge Summary Reason For Visit: ELEVATED TROPONIN LEVELS Hospital Course: admitted for nausea and one episode of vomiting, in er was hypertensive with elevated troponins. pt has eaten little and was very anxious for past week due to daughter being sick. serial trop.showed downward trend, echo: Normal LV size and fxn, mild MR, TR. likely due to Demand ischemia due to HTN Also had a UTI on presentation. pt was started on abx and bblocker, remained asymptomatic during hospital stay. medically stable to dc home and close outpt f/up \ Condition: Stable - Instructions Referrals: Ivett Larson MD [Primary Care Provider] - Disposition: [facility]/HOME HEALTH CARE - Home Medications Comprehensive Discharge Medication List: Ambulatory Orders Ranitidine HCl [Zantac] 150 mg PO DAILY 09/08/16 Nystatin Powder [Nystop Powder -] 1 applic TP BID 05/20/18 Aspirin [ASA -] 81 mg PO DAILY tab.chew 05/21/18 Metoprolol Succinate [Toprol XL -] 12.5 mg PO DAILY #30 tab.sr.24h 05/21/18 Nystatin Powder [Nystop Powder -] 1 applic TP DAILY #0 applic 05/21/18 levoFLOXacin [Levaquin -] 500 mg PO DAILY@0600 #5 tablet 05/21/18
== END 2018-05-21 11:19 | disposition home health service (06) ==
LOC: JER 21:20 → JERBED 23:26 → UNDOADMOB 23:51 → J4W 05-20 09:46
PROVIDERS: ADMIT Internal Medicine; ATTEND Internal Medicine
PROC: 3E03329 Introduction of Other Anti-infective into Peripheral Vein, Percutaneous Approach (ICD-10-PCS; principal; 2018-05-19)
PROC: 3E033GC Introduction of Other Therapeutic Substance into Peripheral Vein, Percutaneous Approach (ICD-10-PCS; 2018-05-19)
DX: R77.8 Other specified abnormalities of plasma proteins (principal); I24.8 Other forms of acute ischemic heart disease; I16.0 Hypertensive urgency; N39.0 Urinary tract infection, site not specified; I10 Essential (primary) hypertension; R11.0 Nausea; K21.9 Gastro-esophageal reflux disease without esophagitis; Z88.1 Allergy status to other antibiotic agents; Z88.2 Allergy status to sulfonamides
CPT/HCPCS: 36415; 71045-TC-FY; 80053; 80061; 81003; 81015; 82550; 83036; 83690; 83721; 84443; 84484; 85025; 85610; 85730; 87086; 87186; 93005; 93010; 93306-TC; 96365; 96375; 99285-25; G0378